=== PATIENT | male | born 1950 | race Caucasian/White ===

== ENCOUNTER 2017-06-04 14:36 | Inpatient (IN) | payer MEDICARE, OTHER ==
[2017-06-04] MEDS: SOD CHLORIDE 0.9% 1,000 ML IV (01:55)
[2017-06-04] MEDS: SODIUM CHLORIDE 0.9% 1L BAG IV* (18:52)
[2017-06-04] MEDS: CEFEPIME 1GM/50 ML (PMX) 50 ML IVPB (18:52)
[2017-06-04 19:20] LABS: ADD MAN DIFF? NO
[2017-06-04 19:22] LABS: WHITE BLOOD COUNT 8.9 10^3/ul (4.8-10.8)
[2017-06-04 19:22] LABS: BASOPHILS % 0.2 % (0.0-2.0); EOSINOPHILS % 0.3 % (0.0-7.0); HEMATOCRIT 36.8 % (42.0-52.0); HEMOGLOBIN 12.3 g/dl (14.0-18.0); LYMPHOCYTES # 1.8 10^3/ul (0.8-2.9); LYMPHOCYTES % 20.1 % (15.0-51.0); MEAN CORPUSCULAR HGB CONC 33.4 g/dl (32.0-37.0); MEAN CORPUSCULAR VOLUME 83.6 fl (82.0-101.0); MEAN PLATELET VOLUME 12.2 fl (7.4-10.4); MONOCYTE # 0.8 10^3/ul (0.3-0.9); MONOCYTES % 9.5 % (0.0-11.0); NEUTROPHIL # 6.2 10^3/ul (1.6-7.5); NEUTROPHILS % 69.3 % (39.0-77.0); PLATELET COUNT 212 10^3/UL (140-415); RED CELL DISTRIBUTION WIDTH 12.6 % (11.5-14.5)
[2017-06-04 19:38] LABS: ADD UMIC YES; UR ASCORBIC ACID NEGATIVE (NEGATIVE); UR BILIRUBIN (Dip) NEGATIVE (NEGATIVE); UR BLOOD (Dip) 1+ mg/dL (NEGATIVE); UR CLARITY CLEAR (CLEAR); UR COLOR YELLOW (YELLOW); UR GLUCOSE (Dip) 3+ mg/dL (NEGATIVE); UR KETONES (Dip) 1+ mg/dL (NEGATIVE); UR LEUKOCYTE ESTERASE (Dip) NEGATIVE Leu/ul (NEGATIVE); UR NITRITE (Dip) NEGATIVE (NEGATIVE); UR RBC 1 /HPF (0-5); UR SPECIFIC GRAVITY (Dip) 1.029 (1.003-1.030); UR TOTAL PROTEIN (Dip) 2+ mg/dl (NEGATIVE); UR UROBILINOGEN (Dip) 1+ mg/dL (NEGATIVE); UR WBC 0 /HPF (0-5)
[2017-06-04 19:44] LABS: LACTIC ACID 1.2 mmol/L (0.5-2.0)
[2017-06-04 19:45] LABS: ALANINE AMINOTRANSFERASE 32 IU/L (13-69); ALBUMIN 3.8 g/dl (3.3-4.9); ALBUMIN/GLOBULIN RATIO 1.11; ALKALINE PHOSPHATASE 80 IU/L (42-121); ANION GAP 15 (8-16); ASPARTATE AMINO TRANSFERASE 24 IU/L (15-46); BILIRUBIN,INDIRECT 0.3 mg/dl (0-1.1); BILIRUBIN,TOTAL 0.3 mg/dl (0.2-1.3); BLOOD UREA NITROGEN 13 mg/dl (7-20); CALCIUM 8.7 mg/dl (8.4-10.2); CARBON DIOXIDE 29 mmol/L (21-31); CHLORIDE 92 mmol/L (97-110); CREATININE 0.75 mg/dl (0.61-1.24); GLUCOSE 382 mg/dl (70-220); POTASSIUM 3.2 mmol/L (3.5-5.1); SODIUM 133 mmol/L (135-144); TOTAL PROTEIN 7.2 g/dl (6.1-8.1)
[2017-06-04 19:46] LABS: INR 0.95; PARTIAL THROMBOPLASTIN TIME 31.9 Sec (25.0-35.0); PROTIME 12.8 Sec (11.9-14.9)
[2017-06-04 20:02] LABS: TROPONIN-I < 0.012 ng/ml (0.00-0.12)
[2017-06-04] MEDS: POTASSIUM CHLORIDE (SR) 20 MEQ TAB PO (21:48)
[2017-06-04] MEDS: LABETALOL HCL 20MG INJ IV (21:48)
[2017-06-04 21:51] LABS: LACTIC ACID 1.2 mmol/L (0.5-2.0)
[2017-06-04] MEDS ORDERED: GLUCOSE GEL 15 GRAM TUBE PO ×2 (23:45)
[2017-06-04] MEDS ORDERED: DEXTROSE 50% 50 ML SYRINGE IV ×2 (23:45)
[2017-06-04] MEDS ORDERED: GLUCOSE GEL 15 GRAM TUBE BUCCAL (23:45)
[2017-06-04] MEDS ORDERED: GLUCAGON 1 MG INJ IM (23:45)
[2017-06-05] MEDS ORDERED: ACETAMINOPHEN 325 MG TAB PO ×2
[2017-06-05] MEDS ORDERED: NA PHOSPHATE/BIPHOS 133 ML ENEMA PR
[2017-06-05] MEDS ORDERED: MAGNESIUM HYDROXIDE 30ML CUP PO
[2017-06-05] MEDS ORDERED: ONDANSETRON 4 MG INJ IV ×2
[2017-06-05] MEDS ORDERED: LABETALOL HCL 20MG INJ IV
[2017-06-05] MEDS ORDERED: NITROGLYCERIN (SL) 0.4 MG TAB SL
[2017-06-05] MEDS ORDERED: LORAZEPAM 2 MG INJ IV
[2017-06-05] MEDS ORDERED: HYDROCODONE/APAP (5/325) TAB PO
[2017-06-05] MEDS ORDERED: NACL 0.9% 3 ML SYG IV
[2017-06-05] MEDS ORDERED: DOCUSATE SODIUM 100 MG CAP PO
[2017-06-05] MEDS ORDERED: morphine 2 MG INJ IV
[2017-06-05] MEDS ORDERED: ALBUTEROL/IPRATROPIUM (NEB) 3 ML AMP HHN
[2017-06-05 00:04] LABS: LACTIC ACID 1.4 mmol/L (0.5-2.0)
[2017-06-05] MEDS: hydrALAzine 20 MG INJ IV ×2 (01:39→12:04)
[2017-06-05] MEDS ORDERED: ACCU-CHEK XX (02:00)
[2017-06-05] MEDS: INSULIN ASPART [NOVOLOG] 3 ML PEN SC ×6 (02:27→20:36)
[2017-06-05] MEDS: INSULIN GLARGINE [LANtus] 3 ML PEN SC ×2 (02:33→20:37)
[2017-06-05] MEDS: PANTOPRAZOLE (EC) 40 MG TAB PO (05:56)
[2017-06-05 06:35] LABS: ADD MAN DIFF? NO
[2017-06-05 06:55] LABS: WHITE BLOOD COUNT 6.9 10^3/ul (4.8-10.8)
[2017-06-05 06:55] LABS: BASOPHILS % 0.3 % (0.0-2.0); EOSINOPHILS # 0.1 10^3/ul (0.0-0.5); HEMATOCRIT 33.6 % (42.0-52.0); HEMOGLOBIN 11.4 g/dl (14.0-18.0); LYMPHOCYTES # 1.4 10^3/ul (0.8-2.9); LYMPHOCYTES % 19.7 % (15.0-51.0); MEAN CORPUSCULAR HGB CONC 33.9 g/dl (32.0-37.0); MEAN CORPUSCULAR VOLUME 82.6 fl (82.0-101.0); MEAN PLATELET VOLUME 12.6 fl (7.4-10.4); MONOCYTE # 0.7 10^3/ul (0.3-0.9); MONOCYTES % 10.7 % (0.0-11.0); NEUTROPHIL # 4.7 10^3/ul (1.6-7.5); NEUTROPHILS % 67.7 % (39.0-77.0); PLATELET COUNT 214 10^3/UL (140-415); RED BLOOD COUNT 4.07 10^6/ul (4.70-6.10); RED CELL DISTRIBUTION WIDTH 12.9 % (11.5-14.5)
[2017-06-05 07:12] LABS: ANION GAP 11 (8-16); BLOOD UREA NITROGEN 10 mg/dl (7-20); CALCIUM 8.5 mg/dl (8.4-10.2); CARBON DIOXIDE 29 mmol/L (21-31); CHLORIDE 102 mmol/L (97-110); CREATININE 0.56 mg/dl (0.61-1.24); GLUCOSE 221 mg/dl (70-220); MAGNESIUM 1.5 mg/dl (1.7-2.5); PHOSPHORUS 2.9 mg/dl (2.5-4.9); POTASSIUM 3.3 mmol/L (3.5-5.1); SODIUM 139 mmol/L (135-144)
[2017-06-05 07:29] LABS: FREE T4 (FREE THYROXINE) 1.87 ng/dl (0.78-2.44)
[2017-06-05 07:32] LABS: CHOL/HDL RATIO 5.8 RATIO; HDL CHOLESTEROL 25 mg/dl (30-78); LDL CHOLESTEROL,CALCULATED 97 mg/dl; TRIGLYCERIDES 123 mg/dl (0-149)
[2017-06-05 07:32] LABS: CHOLESTEROL 147 mg/dl (100-200)
[2017-06-05 07:41] LABS: HEMOGLOBIN A1C 10.9 % (0-5.9)
[2017-06-05] MEDS: AMLODIPINE 10 MG TAB PO (08:37)
[2017-06-05] MEDS: HEPARIN 5,000 UNIT/0.5 ML VIAL SC ×2 (08:38→20:38)
[2017-06-05] MEDS: SOD CHLORIDE 0.9% 1,000 ML IV ×2 (08:38→20:39)
[2017-06-05] MEDS: BENAZEPRIL 5 MG TAB PO ×2 (12:04→20:42)
[2017-06-05] MEDS: POTASSIUM CHLORIDE (SR) 20 MEQ TAB PO (12:05)
[2017-06-05] MEDS: MAGNESIUM SULFATE 2 GM/50 ML 50 ML IVPB (12:05)
[2017-06-05] MEDS: HYPOGLYCEMIA PROTOCOL when Glucose is <70 mg/dL or symptomatic <90 mg/dL. XX (19:02)
[2017-06-05] MEDS: Discontinue current oral sulfonylureas (glyburide, glipizide, and/or glimepiride) prior to XX (19:02)
[2017-06-05] MEDS: FISH OIL 1,000 MG CAP PO (20:38)
[2017-06-05] MEDS ORDERED: INSULIN ASPART [NOVOLOG] 3 ML PEN SC (21:00)
[2017-06-06] MEDS ORDERED: ACCU-CHEK XX (02:00)
[2017-06-06] MEDS: ACCU-CHEK XX (02:00)
[2017-06-06] MEDS: PANTOPRAZOLE (EC) 40 MG TAB PO (05:30)
[2017-06-06] MEDS: SOD CHLORIDE 0.9% 1,000 ML IV (05:31)
[2017-06-06] MEDS: INSULIN ASPART [NOVOLOG] 3 ML PEN SC ×7 (08:04→21:51)
[2017-06-06 08:48] LABS: ADD MAN DIFF? NO
[2017-06-06] MEDS: FISH OIL 1,000 MG CAP PO ×2 (08:50→20:45)
[2017-06-06] MEDS: BENAZEPRIL 5 MG TAB PO ×2 (08:51→20:45)
[2017-06-06] MEDS: AMLODIPINE 10 MG TAB PO (08:51)
[2017-06-06 08:52] LABS: WHITE BLOOD COUNT 8.9 10^3/ul (4.8-10.8)
[2017-06-06 08:52] LABS: BASOPHILS % 0.3 % (0.0-2.0); EOSINOPHILS # 0.1 10^3/ul (0.0-0.5); EOSINOPHILS % 1.4 % (0.0-7.0); HEMATOCRIT 37.4 % (42.0-52.0); HEMOGLOBIN 12.5 g/dl (14.0-18.0); LYMPHOCYTES # 1.9 10^3/ul (0.8-2.9); LYMPHOCYTES % 21.5 % (15.0-51.0); MEAN CORPUSCULAR HEMOGLOBIN 27.8 pg (29.0-33.0); MEAN CORPUSCULAR HGB CONC 33.4 g/dl (32.0-37.0); MEAN CORPUSCULAR VOLUME 83.1 fl (82.0-101.0); MEAN PLATELET VOLUME 12.1 fl (7.4-10.4); MONOCYTE # 0.9 10^3/ul (0.3-0.9); MONOCYTES % 10.1 % (0.0-11.0); NEUTROPHIL # 5.9 10^3/ul (1.6-7.5); PLATELET COUNT 287 10^3/UL (140-415); RED CELL DISTRIBUTION WIDTH 12.8 % (11.5-14.5)
[2017-06-06] MEDS: HEPARIN 5,000 UNIT/0.5 ML VIAL SC ×2 (08:58→20:53)
[2017-06-06 09:16] LABS: ANION GAP 14 (8-16); BLOOD UREA NITROGEN 12 mg/dl (7-20); CALCIUM 8.7 mg/dl (8.4-10.2); CARBON DIOXIDE 27 mmol/L (21-31); CHLORIDE 99 mmol/L (97-110); GLUCOSE 198 mg/dl (70-220); POTASSIUM 3.1 mmol/L (3.5-5.1); SODIUM 137 mmol/L (135-144)
[2017-06-06 12:45] LABS: MAGNESIUM 1.8 mg/dl (1.7-2.5)
[2017-06-06] MEDS: POTASSIUM CHLORIDE (SR) 20 MEQ TAB PO (12:51)
[2017-06-06 13:18] LABS: IRON 27 ug/dl (35-150)
[2017-06-06 13:27] LABS: % IRON SATURATION 14 % SAT (22-52); TOTAL IRON BINDING CAPACITY 194 ug/dl (241-421)
[2017-06-06] MEDS: INSULIN GLARGINE [LANtus] 3 ML PEN SC (21:51)
[2017-06-07] MEDS: ACCU-CHEK XX (02:00)
[2017-06-07] MEDS: PANTOPRAZOLE (EC) 40 MG TAB PO (05:56)
[2017-06-07] MEDS: BENZONATATE 100 MG CAP PO (05:58)
[2017-06-07 06:08] LABS: ADD MAN DIFF? NO
[2017-06-07 06:14] LABS: BASOPHILS % 0.3 % (0.0-2.0); EOSINOPHILS # 0.1 10^3/ul (0.0-0.5); HEMATOCRIT 36.3 % (42.0-52.0); LYMPHOCYTES # 1.1 10^3/ul (0.8-2.9); LYMPHOCYTES % 17.9 % (15.0-51.0); MEAN CORPUSCULAR HEMOGLOBIN 27.4 pg (29.0-33.0); MEAN CORPUSCULAR HGB CONC 33.1 g/dl (32.0-37.0); MEAN CORPUSCULAR VOLUME 82.9 fl (82.0-101.0); MEAN PLATELET VOLUME 11.8 fl (7.4-10.4); MONOCYTE # 0.7 10^3/ul (0.3-0.9); MONOCYTES % 10.6 % (0.0-11.0); NEUTROPHIL # 4.2 10^3/ul (1.6-7.5); NEUTROPHILS % 67.9 % (39.0-77.0); PLATELET COUNT 298 10^3/UL (140-415); RED BLOOD COUNT 4.38 10^6/ul (4.70-6.10); RED CELL DISTRIBUTION WIDTH 12.6 % (11.5-14.5)
[2017-06-07 06:14] LABS: WHITE BLOOD COUNT 6.1 10^3/ul (4.8-10.8)
[2017-06-07 06:44] LABS: ANION GAP 12 (8-16); BLOOD UREA NITROGEN 9 mg/dl (7-20); CALCIUM 8.5 mg/dl (8.4-10.2); CARBON DIOXIDE 27 mmol/L (21-31); CHLORIDE 101 mmol/L (97-110); CREATININE 0.62 mg/dl (0.61-1.24); GLUCOSE 165 mg/dl (70-220); POTASSIUM 3.3 mmol/L (3.5-5.1); SODIUM 137 mmol/L (135-144)
[2017-06-07 06:46] LABS: MAGNESIUM 1.5 mg/dl (1.7-2.5)
[2017-06-07 06:46] LABS: PHOSPHORUS 3.2 mg/dl (2.5-4.9)
[2017-06-07] MEDS: INSULIN ASPART [NOVOLOG] 3 ML PEN SC ×7 (08:33→20:26)
[2017-06-07] MEDS: HEPARIN 5,000 UNIT/0.5 ML VIAL SC ×2 (08:35→20:30)
[2017-06-07] MEDS: FISH OIL 1,000 MG CAP PO ×2 (08:36→20:27)
[2017-06-07] MEDS: BENAZEPRIL 5 MG TAB PO ×2 (08:36→20:28)
[2017-06-07] MEDS: AMLODIPINE 10 MG TAB PO (08:36)
[2017-06-07] MEDS: POTASSIUM CHLORIDE (SR) 20 MEQ TAB PO (11:05)
[2017-06-07] MEDS: MAGNESIUM SULFATE 2 GM/50 ML 50 ML IVPB (12:06)
[2017-06-07] MEDS: INSULIN GLARGINE [LANtus] 3 ML PEN SC (20:29)
[2017-06-08] MEDS: ACCU-CHEK XX (02:00)
[2017-06-08] MEDS: PANTOPRAZOLE (EC) 40 MG TAB PO (05:42)
[2017-06-08 07:27] LABS: ADD MAN DIFF? NO
[2017-06-08 07:34] LABS: BASOPHILS % 0.5 % (0.0-2.0); EOSINOPHILS # 0.1 10^3/ul (0.0-0.5); EOSINOPHILS % 1.9 % (0.0-7.0); HEMATOCRIT 35.1 % (42.0-52.0); HEMOGLOBIN 11.8 g/dl (14.0-18.0); LYMPHOCYTES % 24.2 % (15.0-51.0); MEAN CORPUSCULAR HEMOGLOBIN 27.8 pg (29.0-33.0); MEAN CORPUSCULAR HGB CONC 33.6 g/dl (32.0-37.0); MEAN CORPUSCULAR VOLUME 82.8 fl (82.0-101.0); MEAN PLATELET VOLUME 11.3 fl (7.4-10.4); MONOCYTE # 0.6 10^3/ul (0.3-0.9); MONOCYTES % 12.8 % (0.0-11.0); NEUTROPHIL # 2.5 10^3/ul (1.6-7.5); NEUTROPHILS % 58.7 % (39.0-77.0); PLATELET COUNT 341 10^3/UL (140-415); RED BLOOD COUNT 4.24 10^6/ul (4.70-6.10); RED CELL DISTRIBUTION WIDTH 12.7 % (11.5-14.5)
[2017-06-08 07:34] LABS: WHITE BLOOD COUNT 4.3 10^3/ul (4.8-10.8)
[2017-06-08 07:50] LABS: ANION GAP 12 (8-16); BLOOD UREA NITROGEN 10 mg/dl (7-20); CALCIUM 8.6 mg/dl (8.4-10.2); CARBON DIOXIDE 28 mmol/L (21-31); CHLORIDE 102 mmol/L (97-110); CREATININE 0.58 mg/dl (0.61-1.24); GLUCOSE 127 mg/dl (70-220); POTASSIUM 3.6 mmol/L (3.5-5.1); SODIUM 138 mmol/L (135-144)
[2017-06-08 07:51] LABS: PHOSPHORUS 3.7 mg/dl (2.5-4.9)
[2017-06-08 07:51] LABS: MAGNESIUM 1.8 mg/dl (1.7-2.5)
[2017-06-08] MEDS: INSULIN ASPART [NOVOLOG] 3 ML PEN SC ×6 (08:15→17:31)
[2017-06-08] MEDS: FISH OIL 1,000 MG CAP PO (08:57)
[2017-06-08] MEDS: AMLODIPINE 10 MG TAB PO (08:57)
[2017-06-08] MEDS: BENAZEPRIL 5 MG TAB PO (08:58)
[2017-06-08] MEDS: HEPARIN 5,000 UNIT/0.5 ML VIAL SC (08:59)
[2017-06-08] MEDS: metFORMIN 500 MG TAB PO (17:31)
== END 2017-06-08 20:10 | disposition home or self-care (01) | DRG 305 ==
LOC: TEL 23:43 → MS2 06-07 02:28 → E/R 14:36
PROVIDERS: Hospitalist
DX: I16.0 Hypertensive urgency (principal); E11.65 Type 2 diabetes mellitus with hyperglycemia; E78.2 Mixed hyperlipidemia; R05 Cough; Z91.14 Patient's other noncompliance with medication regimen; E86.0 Dehydration; R32 Unspecified urinary incontinence; E87.6 Hypokalemia; D64.9 Anemia, unspecified
CPT/HCPCS: 36415; 71045; 80048; 80053; 80061; 81001; 82728; 82962; 83036; 83540; 83605; 83735; 84100; 84439; 84443; 84484; 85025; 85610; 85730; 87040; 87086; 93005; 93306; 96374; 96375; 99291-25

== ENCOUNTER 2018-03-08 19:09 | Emergency (ER) | payer MEDICARE, OTHER ==
[2018-03-08] MEDS: SOD CHLORIDE 0.9% 1,000 ML IV (21:02)
[2018-03-08 21:39] LABS: ADD MAN DIFF? NO; BASOPHILS % 0.7 % (0.0-2.0); EOSINOPHILS # 0.1 10^3/ul (0.0-0.5); EOSINOPHILS % 1.9 % (0.0-7.0); HEMATOCRIT 37.6 % (42.0-52.0); HEMOGLOBIN 12.4 g/dl (14.0-18.0); LYMPHOCYTES # 1.9 10^3/ul (0.8-2.9); LYMPHOCYTES % 33.2 % (15.0-51.0); MEAN CORPUSCULAR HEMOGLOBIN 28.3 pg (29.0-33.0); MEAN CORPUSCULAR VOLUME 85.8 fl (82.0-101.0); MEAN PLATELET VOLUME 12.5 fl (7.4-10.4); MONOCYTE # 0.5 10^3/ul (0.3-0.9); MONOCYTES % 8.9 % (0.0-11.0); NEUTROPHIL # 3.2 10^3/ul (1.6-7.5); NEUTROPHILS % 54.8 % (39.0-77.0); PLATELET COUNT 208 10^3/UL (140-415); RED BLOOD COUNT 4.38 10^6/ul (4.70-6.10); RED CELL DISTRIBUTION WIDTH 12.3 % (11.5-14.5)
[2018-03-08 21:39] LABS: WHITE BLOOD COUNT 5.9 10^3/ul (4.8-10.8)
[2018-03-08 21:44] LABS: ANION GAP 9 (5-13); BLOOD UREA NITROGEN 14 mg/dl (7-20); CALCIUM 9.3 mg/dl (8.4-10.2); CARBON DIOXIDE 29 mmol/L (21-31); CHLORIDE 100 mmol/L (97-110); CREATININE 0.75 mg/dl (0.61-1.24); Estimated GFR > 60 mL/min (>60); GLUCOSE 283 mg/dl (70-220); POTASSIUM 4.3 mmol/L (3.5-5.1); SODIUM 138 mmol/L (135-144)
[2018-03-08 23:04] LABS: URINE BLOOD (Dip) POC Trace-intact (NEGATIVE); URINE KETONES (Dip) POC Negative (NEGATIVE); URINE LEUKOCYTE EST (Dip) POC Negative (NEGATIVE); URINE NITRITE (Dip) POC Negative (NEGATIVE); URINE TOTAL PROTEIN POC Negative (NEGATIVE)
[2018-03-08 23:21] LABS: ADD UMIC NO; UR ASCORBIC ACID NEGATIVE (NEGATIVE); UR BILIRUBIN (Dip) NEGATIVE (NEGATIVE); UR BLOOD (Dip) NEGATIVE (NEGATIVE); UR CLARITY CLEAR (CLEAR); UR COLOR COLORLESS (YELLOW); UR GLUCOSE (Dip) 3+ mg/dL (NEGATIVE); UR KETONES (Dip) NEGATIVE (NEGATIVE); UR LEUKOCYTE ESTERASE (Dip) NEGATIVE Leu/ul (NEGATIVE); UR NITRITE (Dip) NEGATIVE (NEGATIVE); UR SPECIFIC GRAVITY (Dip) 1.001 (1.003-1.030); UR TOTAL PROTEIN (Dip) NEGATIVE (NEGATIVE); UR UROBILINOGEN (Dip) NEGATIVE (NEGATIVE)
== END 2018-03-08 23:36 | disposition home or self-care (01) ==
LOC: E/R 19:09
DX: I10 Essential (primary) hypertension (principal); E11.9 Type 2 diabetes mellitus without complications; R40.2142 Coma scale, eyes open, spontaneous, at arrival to emergency department; R40.2252 Coma scale, best verbal response, oriented, at arrival to emergency department; R40.2362 Coma scale, best motor response, obeys commands, at arrival to emergency department; Z79.4 Long term (current) use of insulin; Z87.891 Personal history of nicotine dependence; Z96.651 Presence of right artificial knee joint
CPT/HCPCS: 80048; 81003; 82962; 85025; 93005; 99284-25

== ENCOUNTER 2018-08-02 14:32 | Inpatient (IN) | payer MEDICARE, OTHER ==
[2018-08-02 16:48] LABS: ADD MAN DIFF? NO
[2018-08-02 16:49] LABS: WHITE BLOOD COUNT 9.3 10^3/ul (4.8-10.8)
[2018-08-02 16:49] LABS: BASOPHILS % 0.4 % (0.0-2.0); EOSINOPHILS % 0.3 % (0.0-7.0); HEMATOCRIT 38.4 % (42.0-52.0); HEMOGLOBIN 12.2 g/dl (14.0-18.0); LYMPHOCYTES # 1.4 10^3/ul (0.8-2.9); LYMPHOCYTES % 15.3 % (15.0-51.0); MEAN CORPUSCULAR HEMOGLOBIN 27.1 pg (29.0-33.0); MEAN CORPUSCULAR HGB CONC 31.8 g/dl (32.0-37.0); MEAN CORPUSCULAR VOLUME 85.3 fl (82.0-101.0); MONOCYTE # 0.6 10^3/ul (0.3-0.9); MONOCYTES % 6.3 % (0.0-11.0); NEUTROPHIL # 7.2 10^3/ul (1.6-7.5); NEUTROPHILS % 77.2 % (39.0-77.0); PLATELET COUNT 235 10^3/UL (140-415); RED CELL DISTRIBUTION WIDTH 13.2 % (11.5-14.5)
[2018-08-02 17:07] LABS: INR 0.97
[2018-08-02 17:10] LABS: ANION GAP 11 (5-13); BLOOD UREA NITROGEN 16 mg/dl (7-20); CALCIUM 8.9 mg/dl (8.4-10.2); CARBON DIOXIDE 27 mmol/L (21-31); CHLORIDE 100 mmol/L (97-110); CREATININE 0.81 mg/dl (0.61-1.24); Estimated GFR > 60 mL/min (>60); GLUCOSE 312 mg/dl (70-220); SODIUM 138 mmol/L (135-144)
[2018-08-02 17:13] LABS: URINE BLOOD (Dip) POC Trace-intact (NEGATIVE); URINE KETONES (Dip) POC Trace (NEGATIVE); URINE LEUKOCYTE EST (Dip) POC Negative (NEGATIVE); URINE NITRITE (Dip) POC Negative (NEGATIVE); URINE TOTAL PROTEIN POC 1+ (NEGATIVE)
[2018-08-02 17:31] LABS: PARTIAL THROMBOPLASTIN TIME 28.3 Sec (23.0-35.0)
[2018-08-02] MEDS: ASPIRIN 325 MG TAB PO (18:19)
[2018-08-02] MEDS: hydrALAzine 20 MG INJ IV ×2 (18:24→22:29)
[2018-08-02] MEDS ORDERED: BISACODYL (EC) 5 MG TAB PO (20:00)
[2018-08-02] MEDS ORDERED: DEXTROSE 50% 50 ML SYRINGE IV ×2 (20:00)
[2018-08-02] MEDS ORDERED: GLUCAGON 1 MG INJ IM (20:00)
[2018-08-02] MEDS ORDERED: GLUCOSE GEL 15 GRAM TUBE BUCCAL (20:00)
[2018-08-02] MEDS ORDERED: NACL 0.9% 3 ML SYG IV (20:00)
[2018-08-02] MEDS ORDERED: ONDANSETRON 4 MG INJ IV (20:00)
[2018-08-02] MEDS ORDERED: GLUCOSE GEL 15 GRAM TUBE PO ×2 (20:00)
[2018-08-02] MEDS ORDERED: DOCUSATE SODIUM 100 MG CAP PO (20:00)
[2018-08-02] MEDS ORDERED: ACETAMINOPHEN 325 MG TAB PO (20:00)
[2018-08-02] MEDS: ATORVASTATIN 10 MG TAB PO (21:02)
[2018-08-02] MEDS: GABAPENTIN 100 MG CAP PO (21:03)
[2018-08-02] MEDS: AMLODIPINE 5 MG TAB PO (21:03)
[2018-08-02] MEDS: INSULIN GLARGINE [LANTus] (100 UNITS/ML) SYG SC (22:26)
[2018-08-03] MEDS: ACCU-CHEK XX (01:45)
[2018-08-03 06:34] LABS: CHOL/HDL RATIO 3.7 RATIO; CHOLESTEROL 136 mg/dl (100-200); HDL CHOLESTEROL 36 mg/dl (31-75); LDL CHOLESTEROL,CALCULATED 78 mg/dl; TRIGLYCERIDES 111 mg/dl (0-149)
[2018-08-03 06:34] LABS: MAGNESIUM 2.2 mg/dl (1.7-2.5)
[2018-08-03 07:21] LABS: HEMOGLOBIN A1C 8.1 % (0-5.9)
[2018-08-03] MEDS: INSULIN ASPART [NOVOLOG] 3 ML PEN SC ×6 (08:05→20:21)
[2018-08-03] MEDS: BENAZEPRIL 20 MG TAB PO (08:39)
[2018-08-03] MEDS: ASPIRIN 81 MG TAB PO (08:39)
[2018-08-03] MEDS: AMLODIPINE 5 MG TAB PO (08:39)
[2018-08-03] MEDS ORDERED: BENAZEPRIL 10 MG TAB PO (09:00)
[2018-08-03] MEDS: ENOXAPARIN 40 MG/0.4 ML SYG SC (14:09)
[2018-08-03] MEDS: ATORVASTATIN 40 MG TAB PO (20:21)
[2018-08-03] MEDS: GABAPENTIN 100 MG CAP PO (20:21)
[2018-08-03] MEDS: INSULIN GLARGINE [LANTus] (100 UNITS/ML) SYG SC (20:25)
[2018-08-04] MEDS: ACCU-CHEK XX (02:00)
[2018-08-04 06:44] LABS: ANION GAP 11 (5-13); BLOOD UREA NITROGEN 22 mg/dl (7-20); CALCIUM 8.9 mg/dl (8.4-10.2); CARBON DIOXIDE 29 mmol/L (21-31); CHLORIDE 102 mmol/L (97-110); CREATININE 0.81 mg/dl (0.61-1.24); Estimated GFR > 60 mL/min (>60); GLUCOSE 140 mg/dl (70-220); POTASSIUM 3.5 mmol/L (3.5-5.1); SODIUM 142 mmol/L (135-144)
[2018-08-04] MEDS: SOD CHLORIDE 0.9% 100 ML (07:28)
[2018-08-04] MEDS: IODIXANOL LOCM 100 ML BTL (07:29)
[2018-08-04 07:33] LABS: ERYTHROCYTE SEDIMENTATION RATE 10 mm/Hr (0-20)
[2018-08-04] MEDS: INSULIN ASPART [NOVOLOG] 3 ML PEN SC ×6 (07:55→21:00)
[2018-08-04] MEDS: ASPIRIN 81 MG TAB PO (08:22)
[2018-08-04] MEDS: AMLODIPINE 5 MG TAB PO (08:22)
[2018-08-04] MEDS: BENAZEPRIL 20 MG TAB PO (08:23)
[2018-08-04] MEDS: ENOXAPARIN 40 MG/0.4 ML SYG SC (08:31)
[2018-08-04 10:29] LABS: AMPHETAMINE/METHAMPHETAMINE Negative (NEGATIVE); BARBITURATES Negative (NEGATIVE); BENZODIAZEPINES Negative (NEGATIVE); CANNABINOIDS Negative (NEGATIVE); COCAINE Negative (NEGATIVE); OPIATES Negative (NEGATIVE)
[2018-08-04] MEDS: CLOPIDOGREL 75 MG TAB PO (16:34)
[2018-08-04 18:08] LABS: RAPID PLASMA REAGIN NONREACTIVE (NR)
[2018-08-04] MEDS: ATORVASTATIN 40 MG TAB PO (21:10)
[2018-08-04] MEDS: GABAPENTIN 100 MG CAP PO (21:10)
[2018-08-04] MEDS: INSULIN GLARGINE [LANTus] (100 UNITS/ML) SYG SC (21:40)
[2018-08-05] MEDS: ACCU-CHEK XX (02:00)
[2018-08-05] MEDS: CLOPIDOGREL 75 MG TAB PO (08:33)
[2018-08-05] MEDS: ASPIRIN 81 MG TAB PO (08:33)
[2018-08-05] MEDS: AMLODIPINE 5 MG TAB PO (08:33)
[2018-08-05] MEDS: BENAZEPRIL 20 MG TAB PO (08:34)
[2018-08-05] MEDS: ENOXAPARIN 40 MG/0.4 ML SYG SC (08:47)
[2018-08-05] MEDS: INSULIN ASPART [NOVOLOG] 3 ML PEN SC ×6 (08:47→21:04)
[2018-08-05] MEDS: FINASTERIDE 5 MG TAB PO (13:46)
[2018-08-05 15:18] LABS: HEPATITIS B SURFACE ANTIGEN NEGATIVE (NEGATIVE)
[2018-08-05 15:35] LABS: HEPATITIS C VIRAL ANTIBODY NEGATIVE (NEGATIVE)
[2018-08-05] MEDS: ATORVASTATIN 80 MG TAB PO (20:56)
[2018-08-05] MEDS: TAMSULOSIN (SR) 0.4 MG CAP PO (20:56)
[2018-08-05] MEDS: GABAPENTIN 100 MG CAP PO (20:56)
[2018-08-05] MEDS: INSULIN GLARGINE [LANTus] (100 UNITS/ML) SYG SC (21:04)
[2018-08-05] MEDS: BENZONATATE 100 MG CAP PO (22:30)
[2018-08-06] MEDS: ACCU-CHEK XX (02:00)
[2018-08-06] MEDS: INSULIN ASPART [NOVOLOG] 3 ML PEN SC ×6 (07:49→21:00)
[2018-08-06] MEDS: FINASTERIDE 5 MG TAB PO (09:54)
[2018-08-06] MEDS: CLOPIDOGREL 75 MG TAB PO (09:54)
[2018-08-06] MEDS: BENZONATATE 100 MG CAP PO (09:54)
[2018-08-06] MEDS: BENAZEPRIL 40 MG TAB PO (09:55)
[2018-08-06] MEDS: ASPIRIN 81 MG TAB PO (09:55)
[2018-08-06] MEDS: AMLODIPINE 2.5 MG TAB PO (09:55)
[2018-08-06] MEDS: ENOXAPARIN 40 MG/0.4 ML SYG SC (09:57)
[2018-08-06] MEDS: ATORVASTATIN 80 MG TAB PO (21:24)
[2018-08-06] MEDS: TAMSULOSIN (SR) 0.4 MG CAP PO (21:24)
[2018-08-06] MEDS: GABAPENTIN 100 MG CAP PO (21:24)
[2018-08-06] MEDS: INSULIN GLARGINE [LANTus] (100 UNITS/ML) SYG SC (21:28)
[2018-08-07] MEDS: ACCU-CHEK XX (02:00)
[2018-08-07] MEDS: INSULIN ASPART [NOVOLOG] 3 ML PEN SC ×3 (07:49→12:07)
[2018-08-07] MEDS: AMLODIPINE 2.5 MG TAB PO (08:52)
[2018-08-07] MEDS: CLOPIDOGREL 75 MG TAB PO (08:52)
[2018-08-07] MEDS: FINASTERIDE 5 MG TAB PO (08:52)
[2018-08-07] MEDS: ASPIRIN 81 MG TAB PO (08:53)
[2018-08-07] MEDS: LOSARTAN 50 MG TAB PO (08:53)
[2018-08-07] MEDS: ENOXAPARIN 40 MG/0.4 ML SYG SC (08:58)
== END 2018-08-07 16:40 | disposition home or self-care (01) | DRG 66 ==
LOC: E/R 14:32 → 6WM 18:38
DX: I63.9 Cerebral infarction, unspecified (principal); I65.22 Occlusion and stenosis of left carotid artery; I10 Essential (primary) hypertension; E11.40 Type 2 diabetes mellitus with diabetic neuropathy, unspecified; E78.5 Hyperlipidemia, unspecified; E11.51 Type 2 diabetes mellitus with diabetic peripheral angiopathy without gangrene; Z96.651 Presence of right artificial knee joint; Z89.022 Acquired absence of left finger(s)
CPT/HCPCS: 36415; 70450; 70496; 70498; 70544; 70548; 70551; 71045; 80048; 80061; 80307; 81003; 82962; 83036; 83735; 84443; 85025; 85610; 85651; 85730; 86592; 86803; 87340; 93005; 93306; 93880; 96374; 97110; 97116; 97161; 97166; 99285-25; G0378

== ENCOUNTER 2018-09-21 09:27 | Emergency (ER) | payer MEDICARE, OTHER ==
[2018-09-21 10:06] LABS: ADD MAN DIFF? NO
[2018-09-21 10:07] LABS: BASOPHIL # 0.1 10^3/ul (0.0-0.1); BASOPHILS % 0.4 % (0.0-2.0); EOSINOPHILS # 0.1 10^3/ul (0.0-0.5); EOSINOPHILS % 0.8 % (0.0-7.0); HEMATOCRIT 42.2 % (42.0-52.0); HEMOGLOBIN 13.7 g/dl (14.0-18.0); LYMPHOCYTES # 2.9 10^3/ul (0.8-2.9); LYMPHOCYTES % 21.6 % (15.0-51.0); MEAN CORPUSCULAR HEMOGLOBIN 26.9 pg (29.0-33.0); MEAN CORPUSCULAR HGB CONC 32.5 g/dl (32.0-37.0); MEAN CORPUSCULAR VOLUME 82.9 fl (82.0-101.0); MEAN PLATELET VOLUME 11.4 fl (7.4-10.4); MONOCYTES % 7.2 % (0.0-11.0); NEUTROPHIL # 9.4 10^3/ul (1.6-7.5); NEUTROPHILS % 69.5 % (39.0-77.0); PLATELET COUNT 230 10^3/UL (140-415); RED BLOOD COUNT 5.09 10^6/ul (4.70-6.10); RED CELL DISTRIBUTION WIDTH 13.6 % (11.5-14.5)
[2018-09-21 10:07] LABS: WHITE BLOOD COUNT 13.5 10^3/ul (4.8-10.8)
[2018-09-21] MEDS: DEXTROSE 50% 50 ML SYRINGE IV (10:24)
[2018-09-21 10:25] LABS: ANION GAP 9 (5-13); BLOOD UREA NITROGEN 18 mg/dl (7-20); CALCIUM 9.3 mg/dl (8.4-10.2); CARBON DIOXIDE 30 mmol/L (21-31); CHLORIDE 107 mmol/L (97-110); CREATININE 0.64 mg/dl (0.61-1.24); Estimated GFR > 60 mL/min (>60); INR 0.96; PROTIME 12.9 Sec (11.9-14.9); SODIUM 146 mmol/L (135-144)
[2018-09-21 10:27] LABS: GLUCOSE 39 mg/dl (70-220)
[2018-09-21 10:28] LABS: POTASSIUM 2.5 mmol/L (3.5-5.1)
[2018-09-21 10:36] LABS: B-TYPE NATRIURETIC PEPTIDE 324 PG/ML (0-125); TROPONIN-I < 0.012 ng/ml (0.000-0.120)
[2018-09-21] MEDS: POTASSIUM CHLORIDE (SR) 20 MEQ TAB PO (10:36)
[2018-09-21] MEDS ORDERED: ACETAMINOPHEN 325 MG TAB PO (12:30)
[2018-09-21] MEDS ORDERED: ONDANSETRON 4 MG INJ IV (12:30)
[2018-09-21] MEDS ORDERED: GLUCOSE GEL 15 GRAM TUBE PO ×2 (15:00)
[2018-09-21] MEDS ORDERED: DEXTROSE 50% 50 ML SYRINGE IV ×2 (15:00)
[2018-09-21] MEDS ORDERED: GLUCOSE GEL 15 GRAM TUBE BUCCAL (15:00)
[2018-09-21] MEDS ORDERED: GLUCAGON 1 MG INJ IM (15:00)
[2018-09-21] MEDS: AMLODIPINE 5 MG TAB PO (15:26)
[2018-09-21] MEDS: CLOPIDOGREL 75 MG TAB PO (15:48)
[2018-09-21] MEDS: BENAZEPRIL 40 MG TAB PO (15:49)
[2018-09-21] MEDS: ASPIRIN 81 MG TAB PO (15:49)
[2018-09-21] MEDS: FINASTERIDE 5 MG TAB PO (15:49)
[2018-09-21] MEDS: hydrALAzine 20 MG INJ IV (16:35)
[2018-09-21] MEDS ORDERED: INSULIN ASPART [NOVOLOG] 3 ML PEN SC (18:00)
[2018-09-21] MEDS ORDERED: INSULIN GLARGINE [LANTus] (100 UNITS/ML) SYG SC (21:00)
[2018-09-21] MEDS ORDERED: TAMSULOSIN (SR) 0.4 MG CAP PO (21:00)
[2018-09-21] MEDS ORDERED: ATORVASTATIN 80 MG TAB PO (21:00)
== END 2018-09-21 17:09 | disposition home or self-care (01) ==
LOC: E/R 17:09
DX: E11.65 Type 2 diabetes mellitus with hyperglycemia (principal); R55 Syncope and collapse; E87.6 Hypokalemia; D72.829 Elevated white blood cell count, unspecified; D64.9 Anemia, unspecified; I10 Essential (primary) hypertension; Z79.4 Long term (current) use of insulin; Z79.82 Long term (current) use of aspirin
CPT/HCPCS: 36415; 71045; 80048; 82962; 83880; 84484; 85025; 85610; 93005; 96374; 96375; 99285-25